=== PATIENT | female | born 1965 | race Asian ===

== ENCOUNTER 2016-12-27 22:45 | Emergency (ER) | payer SELFPAY ==
[~2016-12-27] VITALS: Ht 149.9 cm; Wt 48.0 kg
[2016-12-28] MEDS ORDERED: IBUPROFEN 600 MG TABLET PO ONE (00:45)
[2016-12-28 03:34] VITALS: BP 124/84
== END 2016-12-28 03:35 | disposition home or self-care (01) ==
LOC: EMS 22:47
DX: S13.4XXA Sprain of ligaments of cervical spine, initial encounter (principal); S23.3XXA Sprain of ligaments of thoracic spine, initial encounter; V49.40XA Driver injured in collision with unspecified motor vehicles in traffic accident, initial encounter; Y93.89 Activity, other specified; Y92.89 Other specified places as the place of occurrence of the external cause; Y99.8 Other external cause status
CPT/HCPCS: 72040; 72070; 99284